=== PATIENT | female | born 1960 | race Two or more races ===

== ENCOUNTER 2018-09-03 07:01 | Inpatient (IN) | payer OTHER ==
[~2018-09-03] VITALS: Ht 167.6 cm; Wt 77.1 kg
[~2018-09-03 07:01] MED LIST: CARAFATE1 GM; CLONAZEPAM0.5 M1; COZAAR25 MG; COZAAR25 MG PO; DESYREL PO; EVISTA60 MG; PROTONIX40 MG; RESTORIL30 M1; ZOLOFT100 MG; [UNRECOGNIZED DRUG - CODE] PO; [UNRECOGNIZED DRUG - OTHER] PO
[2018-09-04] MEDS ORDERED: TRAZODONE HCL150 MG PO (09:04)
[2018-09-04] MEDS ORDERED: HYDROCHLOROTHIA25 MG PO (09:06)
[2018-09-04] MEDS ORDERED: CARDIZEM CD240 MG PO (09:08)
[2018-09-07] MEDS ORDERED: DICLOFENAC-MIS1 EACH PO (11:42)
[2018-09-07] MEDS ORDERED: PANTOPRAZOLE SO40 MG PO (11:42)
[2018-09-07] MEDS ORDERED: INTESTINEX680 M1 PO (11:42)
[2018-09-07] MEDS ORDERED: ULTRACET PO (11:43)
== END 2018-09-07 14:26 | disposition home or self-care (01) | DRG 331 ==
LOC: CIR.AMB 07:01 → O/R 14:46 → SURG 16:01
PROVIDERS: ADMIT Surgery
PROC: 0DJD8ZZ Inspection of Lower Intestinal Tract, Via Natural or Artificial Opening Endoscopic (ICD-10-PCS; 2018-09-03)
PROC: 0DTN4ZZ Resection of Sigmoid Colon, Percutaneous Endoscopic Approach (ICD-10-PCS; principal; 2018-09-03 12:45)
DX: K57.32 Diverticulitis of large intestine without perforation or abscess without bleeding (principal); N73.6 Female pelvic peritoneal adhesions (postinfective); I10 Essential (primary) hypertension; F32.89 Other specified depressive episodes; F41.8 Other specified anxiety disorders

== ENCOUNTER 2021-03-08 10:15 | Outpatient (CLI) | payer OTHER ==
[~2021-03-08 10:15] MED LIST changes: +CARDIZEM CD240 MG PO; +DICLOFENAC-MIS1 EACH PO; +HYDROCHLOROTHIA25 MG PO; +INTESTINEX680 M1 PO; +PANTOPRAZOLE SO40 MG PO; +TRAZODONE HCL150 MG PO; +ULTRACET PO
== END 2021-03-08 10:22 | disposition home or self-care (01) ==
LOC: RX STUDY 10:15
DX: N39.0 Urinary tract infection, site not specified (principal); N88.8 Other specified noninflammatory disorders of cervix uteri
CPT/HCPCS: 51600; 74455; Q9958